=== PATIENT | female | born 2005 | race Caucasian/White ===

== ENCOUNTER 2025-05-08 11:25 | Emergency (ER) | payer OTHER, SELFPAY ==
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
[2025-05-08 11:31] VITALS: BP 130/90; PULSE 93; O2SAT 98
[2025-05-08 11:35] VITALS: BP 130/81; PULSE 72; RESP 18; TEMP 36.8; O2SAT 100; BMI 22.8
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
[2025-05-08 12:00] VITALS: BP 130/81; PULSE 66; RESP 20; O2SAT 97
[2025-05-08 12:04] LABS: MANUAL DIFF FLAG NO
[2025-05-08 12:07] LABS: Hematocrit 38.6 % (37.0-47.0); Hemoglobin 13.2 g/dl (12.0-16.0); Imm Gran Abs Auto 0.01 X10*3/uL (0.00-0.03); Imm Gran Pct Auto 0.1 % (0.0-0.4); Lymphocytes Absolute Auto 2.6 X10*3/uL (1.2-4.9); Mean Corpuscular HGB Conc 34.2 g/dl (31.0-35.0); Mean Corpuscular Hemoglobin 32.7 pg (27.0-33.0); Mean Corpuscular Volume 95.5 fL (80.0-98.0); NRBC Abs Auto 0.000 X10*3/uL (0.0-0.012); NRBC Pct Auto 0.0 /100WBC (0.0-0.2); Platelet Count 273 X10*3/uL (160-400); Red Blood Count 4.04 X10*6/uL (4.20-5.50); White Blood Count 6.7 X10*3/uL (4.8-10.8)
[2025-05-08 12:33] LABS: Alanine Aminotransferase 27 U/L (0-31); Albumin Level 4.5 g/dL (3.5-5.0); Alkaline Phosphatase 41 U/L (39-117); Anion Gap 14 (12-20); Aspartate Amino Transferase 33 U/L (5-31); Blood Urea Nitrogen 14 mg/dL (9-16); Calcium 9.7 mg/dL (8.4-10.2); Carbon Dioxide 21 mmol/L (22-29); Chloride 108 mmol/L (96-108); Creatinine Clr Calc Pharmacy 104.2; Estimated Glomerular Filt Rate > 60; Magnesium 2.0 mg/dL (1.6-2.6); Potassium 4.1 mmol/L (3.3-5.1); Sodium 139 mmol/L (135-145); Total Protein 7.5 g/dL (6.5-8.0)
[2025-05-08] MEDS: iohexoL 350 MG/ML 100 ML INFUS..BTL IV (13:53)
[2025-05-08 14:00] VITALS: BP 113/63; PULSE 65; RESP 18; O2SAT 99
[2025-05-08 16:05] VITALS: BP 113/63; PULSE 65; RESP 18; TEMP 36.8; O2SAT 99
--- OUTSIDE RECORDS SUMMARY | 2025-05-08 18:27 | XMS_ITS | Clinical Summary ---
Author Organization [facility] Address [address] [place] [address] Care Team Providers Care Mortgage Loan Counselor Name Role Phone Pcp, No Primary Care Provider Edna CaldwellW Unavailable [phone] Allergies No known active allergies Medications * This document contains information received from the source organization and may not represent a complete record from that organization. [place] 24 FE 1-20 MG-MCG(24) tab take 1 tablet by mouth once daily TAKE ACTIVE TABLETS SKIP PLACEBOS AND START NEXT PACK 02/09/2022 Active Family History Medical History Relation Name Comments Breast cancer Maternal Aunt Thyroid disease Maternal Grandmother Relation Name Status Comments Maternal Aunt Maternal Grandmother Social History Tobacco Use Types Packs/Day Years Used Date Smoking Tobacco: Never Smokeless Tobacco: Never Tobacco Cessation:Counseling Given: Not Answered Alcohol Use Standard Drinks/Week Comments Never 0 (1 standard drink = 0.6 oz pur e alcohol) PHQ-2 Answer Date Recorded PHQ-2 Total Score 0 05/06/2024 Comments Unknown Sex and Gender Information Value Date Recorded Sex Assigned at Female 06/16/2024 10:55 AM EST Legal Sex Female 9:10 PM EDT Gender Identity Female 06/16/2024 10:55 AM EST Sexual Orientation Heterosexual (straight) 06/16 10:55 AM EST Last Filed Vital Signs Vital Sign Reading Time Taken Comments Blood Pressure 118/81 03/23/2022 5:06 PM EDT Pulse 82 03/23/2022 5:06 PM EDT Temperature 36.8 C (98.2 F) 03/23/2022 5:06 PM EDT Respiratory Rate 18 03/23/2022 5:06 PM EDT Oxygen Saturation 99% 03/23/2022 5:06 PM EDT Inhaled Oxygen Concentration - - Weight 59 kg (130 lb) 03/23/2022 5:06 PM EDT Height 170.2 cm (5' 7 ) 03/23/2022 5:06 PM EDT Body Mass Index 20.36 03/23/2022 5:06 PM EDT Plan of Treatment Health Maintenance Due Date Last Done Comments Hepatitis C Virus Screening 2003 HIV Screening 08/02/2016 HPV Vaccines (1 - 3-dose series) 08/02/2018 DTaP/Tdap/Td Vaccines (1 - Tdap) 08/02/2022 Hepatitis B Vaccines (1 of 3 - 19+ 3-dose series) 08/02/2022 Pap Smear (Ages 21-65) 08/02/2024 Influenza Vaccine 12/26/2024 02/20/2024 COVID-19 Vaccine (1 - 2024-2 6 season) 2025 Pneumococcal Vaccine: Pediat jesus (0-5 Years) and At-Risk Patients (6 to 49 Years) Aged Out No longer eligible b ased on patient's age to complete this topic Insurance [facility] Care Teams Mortgage Loan Counselor Relationship Specialty Start Date End Date Pcp, No PCP - General General Medicine 03/23/22 Edna Clemente LCSW [address] [place] [address] Scouring Train Operator Social Work 05/06/24
--- OUTSIDE RECORDS SUMMARY | 2025-05-08 18:27 | XMS_ITS | Clinical Summary ---
Author Organization [facility] Address [address] [address] Care Team Providers Care Sales Merchandise Associate Name Role Phone Pcp, No Primary Care Provider [phone] Social History Tobacco Use Types Packs/Day Years Used Date Smoking Tobacco: Never Assessed Comments Unknown Sex and Gender Information Value Date Recorded Sex Assigned at Not on file Legal Sex Female 8:30 PM EDT Gender Identity Not on file Sexual Orientation Not on file Plan of Treatment Not on file Medical Devices Not on file Insurance Care Teams Sales Merchandise Associate Relationship Specialty Start Date End Date Elizabeth Bush PCP - General Family Medicine 03/26/20
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
--- OUTSIDE RECORDS SUMMARY | 2025-05-08 18:27 | XMS_ITS | Encounter Summary ---
Author Organization [facility] Address [address] [place] [address] Care Team Providers Care Flat Folder Name Role Phone Pcp, No Primary Care Provider Unavailabl e Edna Clemente LCSW Unavailable [phone] Encounter Details Date Type Department Care Team (Late st Contact Info) Description 03/27/2022 Scanned Document [facility] PRIMARY CARE SCAN Social History Tobacco Use Types Packs/Day Years Used Date Smoking Tobacco: Never Smokeless Tobacco: Never Alcohol Use Standard Drinks/Week Comments Never 0 (1 standard drink = 0.6 oz pur e alcohol) Comments Unknown Sex and Gender Information Value Date Recorded Sex Assigned at Female 06/16/2024 10:55 AM EST Legal Sex Female 9:10 PM EDT Gender Identity Female 06/16/2024 10:55 AM EST Sexual Orientation Heterosexual (straight) 06/16 10:55 AM EST COVID-19 Exposure Response Date Recorded In the last 10 days, have yo u been in contact with someone who was confirmed or suspected to have Coronavirus/COVID-19? No / Unsure 03/23/2022 4:50 PM EDT documented as of this encounter Plan of Treatment Not on file documented as of this encounter Visit Diagnoses Not on filedocumented in this encounter Care Teams Flat Folder Relationship Specialty Start Date End Date Pcp, No PCP - General General Medicine 03/23/22 Edna Clemente LCSW [address] [place] [id number] Type Soldering Machine Tender Social Work 05/06/24 documented as of this encounter
== END 2025-05-08 16:06 | disposition home or self-care (01) ==
PROVIDERS: Physician Assistant; Emergency Provider Emergency Medicine
DX: S06.0X0A Concussion without loss of consciousness, initial encounter (principal); S13.4XXA Sprain of ligaments of cervical spine, initial encounter; V43.52XA Car driver injured in collision with other type car in traffic accident, initial encounter; M25.512 Pain in left shoulder; M54.50 Low back pain, unspecified; R39.15 Urgency of urination; Y93.89 Activity, other specified; Y92.410 Unspecified street and highway as the place of occurrence of the external cause; Y99.9 Unspecified external cause status
CPT/HCPCS: 36415; 70450; 71260; 72125; 73030; 74177; 80053; 83735; 84702; 85025; 96374; 99283; 99284; J1885; Q9967

== ENCOUNTER → 2025-05-08 11:43 | Outpatient (BNV) | payer OTHER, SELFPAY | PROVIDERS: Emergency Provider Emergency Medicine; Visit Provider Radiology Diagnostic Radiology | DX: R10.9 Unspecified abdominal pain (principal); R07.9 Chest pain, unspecified; M54.2 Cervicalgia; V89.2XXA Person injured in unspecified motor-vehicle accident, traffic, initial encounter; Z04.3 Encounter for examination and observation following other accident; M25.512 Pain in left shoulder | CPT/HCPCS: 70450; 71260; 72125; 73030; 74177 ==